=== PATIENT | female | born 2000 ===

== ENCOUNTER 2023-05-25 18:50 | Emergency (ER) | payer SELFPAY ==
[2023-05-25 19:19] LABS: BASOPHILS ABSOLUTE AUTO 0.05 10^3/uL (0.00-0.50); BASOPHILS PERCENT AUTO 0.7 % (0-1); EOSINOPHILS ABSOLUTE AUTO 0.07 10^3/uL (0.00-1.50); EOSINOPHILS PERCENT AUTO 0.9 % (0-6); HEMATOCRIT 38.1 % (37.0-47.0); HEMOGLOBIN 12.5 g/dL (12.0-16.0); IMMATURE GRAN ABSOLUTE AUTO 0.01 10^3/uL (0.00-0.49); IMMATURE GRAN PERCENT AUTO 0.1 % (0.0-4.9); LYMPHOCYTES ABSOLUTE AUTO 3.54 10^3/uL (0.60-5.00); LYMPHOCYTES PERCENT AUTO 47.4 % (24-44); MEAN CORPUSCULAR HEMOGLOBIN 29.7 pg (27.0-32.0); MEAN CORPUSCULAR HGB CONC 32.8 g/dL (32.0-36.0); MEAN CORPUSCULAR VOLUME 90.5 fL (83.0-97.0); MONOCYTES ABSOLUTE AUTO 0.57 10^3/uL (0.00-1.50); MONOCYTES PERCENT AUTO 7.6 % (0-10); NEUTROPHILS ABSOLUTE AUTO 3.23 x10^3/uL (1.80-8.00); NEUTROPHILS PERCENT AUTO 43.3 % (41-71); PLATELET COUNT,PLT 358 10^3/uL (150-400); RED BLOOD CELL COUNT 4.21 x10^6/uL (4.00-5.50); WHITE BLOOD CELL COUNT,WBC 7.5 10^3/uL (4.0-11.0)
[2023-05-25 19:22] LABS: APPEARANCE,URINE CLOUDY (CLEAR); BILIRUBIN,URINE NEGATIVE (NEGATIVE); COLOR,URINE DARK YELLOW (YELLOW); GLUCOSE,URINE NEGATIVE (NEGATIVE); KETONES,URINE NEGATIVE (NEGATIVE); LEUKOCYTE ESTERASE,URINE TRACE (NEGATIVE); NITRITE,URINE NEGATIVE (NEGATIVE); OCCULT BLOOD,URINE MODERATE (NEGATIVE); PROTEIN,URINE TRACE mg/dL (NEGATIVE); UROBILINOGEN,URINE 0.2 EU/dL (0.2-1.0)
[2023-05-25 19:28] LABS: BACTERIA,URINE OCCASIONAL /HPF (NOT SEEN); RBC,URINE >100 /HPF (0-5); SQUAMOUS EPITHELIAL CELLS,UR FEW /HPF (NOT SEEN); WBC,URINE 0-5 /HPF (0-5)
[2023-05-25 19:32] LABS: ALBUMIN 3.7 g/dL (3.4-5.0); BILIRUBIN TOTAL 0.3 mg/dL (0.0-1.0); C-REACTIVE PROTEIN 0.09 mg/dL (<=0.30); CALCIUM 9.1 mg/dL (8.4-10.1); CREATININE 0.6 mg/dL (0.6-1.0); EST CRCL DRUG DOSING (CG) 138.85 mL/min; POTASSIUM,K 3.5 mEq/L (3.5-5.0); PROTEIN TOTAL,TP 7.4 g/dL (6.4-8.2)
== END 2023-05-25 20:55 | disposition home or self-care (01) ==
LOC: CC.ED 18:50
DX: N93.9 Abnormal uterine and vaginal bleeding, unspecified (principal); R42 Dizziness and giddiness
CPT/HCPCS: 36415; 80053; 81001; 81025; 85025; 86140; 96374; 99283; 99284-25; J3490